=== PATIENT | male | born 1945 | race Caucasian/White ===

== ENCOUNTER 2022-01-13 11:46 | Outpatient (CLI) | payer MEDICARE, SELFPAY ==
[2022-01-13 13:53] LABS: PSA Diagnostic* < 0.06 ng/mL (0.10-4.00)
== END 2022-01-13 11:47 | disposition home or self-care (01) ==
PROVIDERS: Visit Provider Internal Medicine
DX: C61 Malignant neoplasm of prostate (principal)
CPT/HCPCS: 36415; 84153

== ENCOUNTER 2023-01-23 15:22 | Outpatient (CLI) | payer MEDICARE, SELFPAY ==
[2023-01-23 17:09] LABS: PSA Diagnostic* 0.08 ng/mL (0.10-4.00)
== END 2023-01-23 15:23 | disposition home or self-care (01) ==
PROVIDERS: Visit Provider Physician Assistant
DX: C61 Malignant neoplasm of prostate (principal)
CPT/HCPCS: 36415; 84153

== ENCOUNTER 2024-01-27 15:43 | Outpatient (CLI) | payer MEDICARE, SELFPAY ==
[2024-01-27 19:35] LABS: PSA Diagnostic* < 0.06 ng/mL (0.10-4.00)
== END 2024-01-27 15:44 | disposition home or self-care (01) ==
PROVIDERS: Visit Provider Internal Medicine
DX: C61 Malignant neoplasm of prostate (principal)
CPT/HCPCS: 36415; 84153